=== PATIENT | female | born 2000 | race African-American/Black ===

== ENCOUNTER 2024-03-05 07:37 | Inpatient (IN) | payer OTHER ==
[~2024-03-05] VITALS: Ht 160 cm; Wt 48.1 kg
[2024-03-05] MEDS ORDERED: ONDANSETRON HCL/PF 4 MG/2 ML VIAL ONE (07:49)
[2024-03-05] MEDS: IV NS 0.9% 1,000 ML BAG IV ONE (08:05)
[2024-03-05] MEDS: ONDANSETRON HCL/PF 4 MG/2 ML VIAL IVP ONE (08:05)
[2024-03-05 08:12] LABS: BASOPHILS # (AUTO) 0.1 K/uL (0.0-0.2); BASOPHILS % (AUTO) 1.1 % (0.0-2.0); EOSINOPHILS % (AUTO) 0.6 % (0.0-6.0); HEMATOCRIT 32 % (33-45); LYMPHOCYTES # (AUTO) 1.9 K/uL (0.8-4.8); MEAN CORPUSCULAR HEMOGLOBIN 23 PG (26.0-33.0); MEAN CORPUSCULAR HGB CONC 31 g/dl (31.0-36.0); MEAN CORPUSCULAR VOLUME 73 fL (82-100); MONOCYTES # (AUTO) 0.2 K/uL (0.1-1.30); MONOCYTES % (AUTO) 3.7 % (2.0-12.0); NEUTROPHILS # (AUTO) 4.2 K/uL (1.8-8.9); NEUTROPHILS % (AUTO) 65.6 % (43.0-81.0); PLATELET COUNT (AUTO) 374 K/uL (150-450); RED BLOOD CELL COUNT(AUTO) 4.41 MIL/uL (4.0-5.2); RED CELL DISTRIBUTION WIDTH 19.6 % (11.5-15.0); WHITE BLOOD COUNT (AUTO) 6.5 K/uL (4.3-11.0)
[2024-03-05 08:19] LABS: CREATININE 0.8 mg/dL (0.6-1.3); POTASSIUM 2.8 mmol/L (3.5-5.1)
[2024-03-05 08:24] LABS: ALBUMIN 4.5 g/dL (3.4-5.0); BILIRUBIN,DIRECT 0.1 mg/dL (0.0-0.2); BILIRUBIN,TOTAL 0.3 mg/dL (0.2-1.0); TOTAL PROTEIN, SERUM 8.7 g/dL (6.4-8.2)
[2024-03-05] MEDS: IV LR 1000 ML 1,000 ML BAG IV ONE (08:34)
[2024-03-05] MEDS ORDERED: POTASSIUM CL. PREMIX PERIPHER. 50 ML ONE (08:43)
[2024-03-05] MEDS ORDERED: Magnesium 1GM/D5W 100ML PREMIX 100 ML IV ONE (08:46)
[2024-03-05] MEDS: Magnesium 1GM/D5W 100ML PREMIX 100 ML IV STA (08:53)
[2024-03-05 09:19] LABS: PREGNANCY TEST URINE QUAL NEGATIVE (NEGATIVE)
[2024-03-05] MEDS: POTASSIUM CL. PREMIX PERIPHER. 50 ML IV SCH (09:36)
[2024-03-05] MEDS ORDERED: Z GUARD REMEDY 4 OZ OINT TP PRN (12:00)
[2024-03-05] MEDS ORDERED: MAG HYDROX/AL HYDROX/SIMETH 30 ML UDC PO PRN (12:00)
[2024-03-05] MEDS ORDERED: MAGNESIUM HYDROXIDE 30 ML UDC PO PRN (12:00)
[2024-03-05] MEDS ORDERED: ONDANSETRON HCL/PF 4 MG/2 ML VIAL IVP PRN (12:00)
[2024-03-05] MEDS ORDERED: ACETAMINOPHEN 325 MG TABLET PO PRN (12:00)
[2024-03-05 12:08] VITALS: BP 129/82; TEMP 97.8; O2SAT 100
[2024-03-05] MEDS: IV NS 0.9% 1,000 ML IV PRN (12:29)
[2024-03-05 16:00] VITALS: BP 120/76; TEMP 98.6; O2SAT 100
[2024-03-05 16:01] VITALS: BP 104/60; O2SAT 100
[2024-03-05 16:03] VITALS: BP 102/60
[2024-03-05 20:20] VITALS: BP 115/66; TEMP 98.2; O2SAT 100
[2024-03-05 20:42] VITALS: BP 115/66; TEMP 98.2; O2SAT 100
[2024-03-05] MEDS ORDERED: ZOLPIDEM TARTRATE 5 MG TABLET PO PRN (22:00)
[2024-03-06] VITALS: BP 107/62; TEMP 98.6; O2SAT 100
[2024-03-06 00:18] VITALS: BP_SYST 107; BP_SYST 117; BP_SYST 123; BP_DIAS 62; BP_DIAS 74; BP_DIAS 81; TEMP 98.6; O2SAT 100
[2024-03-06 04:35] VITALS: BP 100/76; TEMP 99; O2SAT 100
[2024-03-06 06:35] LABS: BASOPHILS # (AUTO) 0.1 K/uL (0.0-0.2); BASOPHILS % (AUTO) 0.8 % (0.0-2.0); EOSINOPHILS # (AUTO) 0.1 K/uL (0.0-0.7); EOSINOPHILS % (AUTO) 1.1 % (0.0-6.0); HEMATOCRIT 27 % (33-45); HEMOGLOBIN 8.3 g/dL (11.5-14.8); LYMPHOCYTES # (AUTO) 2.4 K/uL (0.8-4.8); LYMPHOCYTES % (AUTO) 24.5 % (20.0-44.0); MEAN CORPUSCULAR HEMOGLOBIN 23 PG (26.0-33.0); MEAN CORPUSCULAR HGB CONC 31 g/dl (31.0-36.0); MEAN CORPUSCULAR VOLUME 72 fL (82-100); MONOCYTES # (AUTO) 0.9 K/uL (0.1-1.30); MONOCYTES % (AUTO) 8.7 % (2.0-12.0); NEUTROPHILS # (AUTO) 6.4 K/uL (1.8-8.9); NEUTROPHILS % (AUTO) 64.9 % (43.0-81.0); PLATELET COUNT (AUTO) 299 K/uL (150-450); RED BLOOD CELL COUNT(AUTO) 3.68 MIL/uL (4.0-5.2); RED CELL DISTRIBUTION WIDTH 19.5 % (11.5-15.0); WHITE BLOOD COUNT (AUTO) 9.8 K/uL (4.3-11.0)
[2024-03-06 07:36] LABS: CALCIUM, SERUM 10.1 mg/dL (8.5-10.1); CREATININE 0.7 mg/dL (0.6-1.3); MAGNESIUM 1.8 mg/dL (1.8-2.4); POTASSIUM 3.3 mmol/L (3.5-5.1)
[2024-03-06 08:14] LABS: THYROID STIMULATING HORMONE 0.75 uIU/mL (0.358-3.74)
[2024-03-06 09:36] VITALS: BP 124/84; TEMP 98.1; O2SAT 98
[2024-03-06] MEDS: POTASSIUM CHLORIDE 20 MEQ TAB.PRT.SR PO SCH (09:46)
== END 2024-03-06 13:26 | disposition home or self-care (01) | DRG 422 ==
LOC: ER 07:51 → TELE 10:49
PROVIDERS: ADMIT Student in an Organized Health Care Education/Training Program; ATTEND Student in an Organized Health Care Education/Training Program
DX: E87.6 Hypokalemia (principal); E87.29 Other acidosis; R55 Syncope and collapse; E83.39 Other disorders of phosphorus metabolism; F10.10 Alcohol abuse, uncomplicated; I45.81 Long QT syndrome; D64.9 Anemia, unspecified; Z71.41 Alcohol abuse counseling and surveillance of alcoholic; E86.0 Dehydration
CPT/HCPCS: 36415; 80048-TC; 80076-TC; 83690-TC; 83735-TC; 84100-TC; 84443-TC; 84703-TC; 85025-TC; 93307-TC; A4223; G0378; J2405; J3475; J3480; J7030; J7120

== ENCOUNTER 2024-05-18 08:39 | Emergency (ER) | payer OTHER ==
[~2024-05-18] VITALS: Ht 160 cm; Wt 48.1 kg
[2024-05-18 08:53] VITALS: BP 129/76; TEMP 99.2
[2024-05-18] MEDS ORDERED: PHEN180L4 PO (09:14)
[2024-05-18] MEDS ORDERED: GUAI120L56 PO (09:14)
[2024-05-18] MEDS ORDERED: IPRA12.9 INH (09:16)
[2024-05-18 09:21] VITALS: O2SAT 100
== END 2024-05-18 09:22 | disposition home or self-care (01) ==
LOC: ER 09:00
DX: J06.9 Acute upper respiratory infection, unspecified (principal); R05.9 Cough, unspecified; Z20.822 Contact with and (suspected) exposure to COVID-19

== ENCOUNTER 2024-08-06 22:03 | Emergency (ER) | payer OTHER ==
[~2024-08-06 22:03] MED LIST: GUAI120L56 PO; IPRA12.9 INH; PHEN180L4 PO
== END 2024-08-06 22:56 | disposition left against medical advice (07) ==
LOC: ER 22:24
DX: R50.9 Fever, unspecified (principal); R05.9 Cough, unspecified; M79.10 Myalgia, unspecified site; Z53.21 Procedure and treatment not carried out due to patient leaving prior to being seen by health care provider

== ENCOUNTER 2024-08-07 17:45 | Emergency (ER) | payer OTHER ==
[~2024-08-07] VITALS: Ht 160 cm; Wt 50.8 kg
[2024-08-07 18:53] VITALS: BP 120/78; TEMP 98.7; O2SAT 100
== END 2024-08-07 19:49 | disposition home or self-care (01) ==
LOC: ER 18:18
DX: J06.9 Acute upper respiratory infection, unspecified (principal); R05.9 Cough, unspecified